=== PATIENT | female | born 1940 | race Caucasian/White ===

== ENCOUNTER → 2019-11-12 15:35 | Outpatient (CLI) | payer MEDICARE, BC ==
[2011-08-10 14:07] VITALS: BMI 25.5
[2019-11-12 16:02] LABS: BASOPHILS 0.2 % (0-2); EOSINOPHILS 1.1 % (0-7); HEMOGLOBIN 11.1 g/dL (12-16); IMMATURE GRANULOCYTES 0.2 % (0-5); LYMPHOCYTES 26.1 % (15-50); MCH 24.9 pg (26.0-34.0); MCHC 31.7 g/dL (31.0-37.0); MCV 78.5 fL (80.0-100.0); MONOCYTES 10.3 % (2-11); NEUTROPHILS 62.1 % (40-80); PLATELET COUNT 226 10x3/uL (130-400); RBC 4.46 10x6/uL (4.00-5.40); RDW 16.7 % (11.5-14.5); WBC 4.7 10x3/uL (4.8-10.8)
[2019-11-12 16:34] LABS: ALBUMIN 3.1 g/dL (3.4-5.0); ALKALINE PHOSPHATASE 71 U/L (46-116); ALT (SGPT) 55 U/L (10-68); BILIRUBIN - TOTAL 0.26 mg/dL (0.2-1.3); CALC OSMOLALITY 277 mosm/kg (275-300); CALCIUM 8.1 mg/dL (8.5-10.1); CARBON DIOXIDE 29.6 mmol/L (21.0-32.0); CHLORIDE - SERUM 106 mmol/L (98-107); CREATININE - SERUM 0.7 mg/dL (0.6-1.3); GLUCOSE 91 mg/dL (74-106); POTASSIUM - SERUM 4.4 mmol/L (3.5-5.1); PROTEIN - SERUM 6.4 g/dL (6.4-8.2); SODIUM 140 mmol/L (136-145); UREA NITROGEN 11 mg/dL (7-18); eGFR NON AFRICAN AMERICAN 85 mL/min (90-120)
== END | disposition home or self-care (01) ==
LOC: D.LABREF 15:35
PROVIDERS: ATTEND Family Medicine
DX: R53.1 Weakness (principal)